=== PATIENT | female | born 1980 | race Caucasian/White ===

== ENCOUNTER 2016-10-27 09:27 | Day surgery (SDC) | payer MEDICAID ==
[2016-10-27] MEDS ORDERED: LR 1,000 ML IV SCH (10:30)
--- NOTE | 2016-10-27 11:30 | PDGENHP ---
History & Physical Chief Complaint: crohns History of Present Illness: crohns Relevant Physical Exam: NAD Cardiorespiratory Assessment: rrr. ctab
[2016-10-27] MEDS ORDERED: MIDAZOLAM 2 MG/2 ML VIAL IVP ONE (12:31)
--- NOTE | 2016-10-27 12:34 | PDANEPAE ---
ANE History of Present Illness Colonoscope ANE Past Medical History - Cardiovascular History Hx Hypertension: No Hx Arrhythmias: No Hx Chest Pain: No Hx Coronary Artery / Peripheral Vascular Disease: No Hx CHF / Valvular Disease: No Hx Palpitations: No - Pulmonary History Hx COPD: No Hx Asthma/Reactive Airway Disease: No Hx Recent Upper Respiratory Infection: No Hx Oxygen in Use at Home: No Hx Sleep Apnea: No - Endocrine History Hx Diabetes: No Hypothyroid: No Hyperthyroid: No ANE Patient History - Allergies Allergies/Adverse Reactions: ciprofloxacin [From Cipro] Allergy (Verified 10/27/16 10:01) ciprofloxacin HCl [From Cipro] Allergy (Verified 10/27/16 10:01) clindamycin Allergy (Verified 10/27/16 10:01) doxycycline Allergy (Verified 10/27/16 10:01) fluoxetine [From Prozac] Allergy (Verified 10/27/16 10:01) Swelling/neck,face,throat morphine Allergy (Verified 10/27/16 10:01) prochlorperazine [From Compazine] Allergy (Verified 10/27/16 10:01) prochlorperazine edisylate [From Compazine] Allergy (Verified 10/27/16 10:01) prochlorperazine maleate [From Compazine] Allergy (Verified 10/27/16 10:01) rifampin Allergy (Verified 10/27/16 10:01) Sulfa (Sulfonamide Antibiotics) Allergy (Verified 10/27/16 10:01) - Home Medications Home medications: home medication list seen and reviewed Home Medications: Cyanocobalamin [Vitamin B12 1000MCG/ML (*)] 1,000 mcg IJ .QMONTH 01/15/16 [Last Taken 09/29/16] Gabapentin [Neurontin 300 MG (*)] 600 mg PO BID 01/15/16 [Last Taken 10/27/16 09 :00] HYDROmorphone HCL [Dilaudid 4 mg (*)] 4 mg PO QID 01/15/16 [Last Taken 01/15/16 09:00] QUEtiapine FUMARATE [Seroquel 100 mg (*)] 400 mg PO HS 01/15/16 [Last Taken 12/04 21:00] Sertraline HCl [Zoloft 100mg (*)] 200 mg PO DAILY 01/15/16 [Last Taken 10/26/16 09:00] clonIDINE [Catapres (*)] 0.1 mg PO TID 01/15/16 [Last Taken 10/27/16 07:00] clonazePAM [klonoPIN (*)] 1 mg PO TID 01/15/16 [Last Taken 10/26/16 21:00] inFLIXimab [Remicade Inj 100 mg (*)] 0 mg IV .QMONTH 01/15/16 [Last Taken ] - NPO status NPO Since - Liquids (Date): 10/26/16 NPO Since - Liquids (Time): 22:00 NPO Since - Solids (Date): 10/26/16 NPO Since - Solids (Time): 09:00 - Anes Hx Anes Hx: post operative nausea - Smoking Hx Smoking Status: Never smoked Marijuana use: No - Alcohol Use Alcohol Use: Rarely - Family Anes Hx Family Anes Hx: none ANE Labs/Vital Signs - Vital Signs Blood Pressure: 107/69 Heart Rate: 94 Respiratory Rate: 16 O2 Sat (%): 95 Height: 185.42 cm Weight: 86.183 kg ANE Physical Exam - Airway Neck exam: FROM Mallampati Score: Class 1 Mouth exam: normal dental/mouth exam - Pulmonary Pulmonary: no respiratory distress - Cardiovascular Cardiovascular: regular rate and rhythym - ASA Status ASA Status: III ANE Anesthesia Plan Anesthesia Plan: GA with mask
[2016-10-27] MEDS ORDERED: PROPOFOL 200 MG/20 ML VIAL ONE ×3 (12:38→12:54)
[2016-10-27] MEDS ORDERED: NALOXONE HCL 0.4 MG/ML INJ IVP PRN (13:07)
[2016-10-27] MEDS ORDERED: ONDANSETRON 4 MG/2 ML VIAL IVP PRN (13:07)
[2016-10-27] MEDS ORDERED: fentaNYL 100 MCG/2 ML INJ ONE (13:26)
[2016-10-27] MEDS: fentaNYL 100 MCG/2 ML INJ IVP PRN ×2 (13:27→13:36)
[2016-10-27] MEDS ORDERED: ONDANSETRON 4 MG/2 ML VIAL ONE (13:31)
[2016-10-27 13:41] VITALS: TEMP 97.9
--- NOTE | 2016-10-27 14:34 | GPN ---
[f rep st] PROCEDURE NOTE DATE OF PROCEDURE: 10/27/2016 PROCEDURES: 1. Colonoscopy through stoma. 2. Sigmoidoscopy through anal orifice. 3. Biopsies throughout. INDICATION: Crohn disease with ongoing diarrhea, abdominal pain, and assessment for response to therapy after approximately 5 months of continuous Stelara. CONSENT: Informed consent was obtained from the patient after an explanation of risks, benefits, and alternatives to the procedure. MEDICATIONS GIVEN: Per Anesthesia. ESTIMATED BLOOD LOSS: Minimal. COMPLICATIONS: None. DESCRIPTION OF EXAM: After adequate sedation was achieved, the adult colonoscope was initially attempted to advance through the anal orifice but was unable to due to stricture formation. Therefore, it was removed, advanced into the descending colostomy, and advanced through the colon and into the distal ilium. Views throughout were good. Prep was good. Patient tolerance of the procedure was good. After the colonoscope was removed, we switched to an upper endoscope and used this to advance through the anal orifice and as far as the sigmoid colon. Prep in the sigmoid colon was poor with a large amount of formed stool. However, views of the mucosa were reasonable and noted as below. I was unable to reach the surgical top of the sigmoid colon where she is sewn shut. Then retroflexion was performed in the rectum. FINDINGS: 1. Ilium: The ilium appeared fairly normal with no ulcers or even any aphthae. Biopsies were performed throughout the ilium that was seen. About 15 cm of ileum were able to be visualized. 2. Ileocolonic anastomosis: This was seen in the ascending colon and had a healthy and wide open appearance. There was a small amount of erythema and erosions typical of many ileocolonic anastomoses. 3. Ascending and transverse colon: Normal appearing mucosa with no significant abnormalities. Biopsies were obtained for histology throughout the ascending and transverse colon. 4. Descending colon: Notable for long linear ulcerations in multiple quadrants. One of these extended all the way to the exterior portion of the ostomy. Biopsies were performed in the descending colon and of the ulcerated area to assess for Crohn disease versus ischemia. 5. Sigmoid colon as seen advancing from the anal orifice: Fair amount of solid stool was present although mucosa appeared fairly normal. Biopsies were taken. I am not sure how close I was to the top of her surgically closed sigmoid colon as the amount of solid stool prevented me from blindly advancing the scope. 6. Rectum: Notable for an 8 cm ulcerated stricture extending to the anal orifice. The anal canal was approximately 6 mm in diameter. I did obtain biopsies from the ulcerated tissue. I did not dilate. IMPRESSION: 1. Moderate ulcerations throughout the descending colon extending to the level of the descending colostomy, and otherwise, fairly normal colonoscopy other than some mild inflammation at the ileocolonic anastomosis. Biopsies obtained as noted above. 2. Significant anorectal stricturing 8 cm in distance with stool remaining in the sigmoid colon. 3. Overall, I think the descending colon ulcers and anal canal and rectal stricturing likely represent active Crohns disease. RECOMMENDATIONS: 1. Await pathology results. 2. Continue Stelara. 3. Difficult situation. Will tentatively plan to add azathioprine and Uceris with hope of driving descending colon disease into remission. I do think she will need left [id number], and if we can't get disease in the descending colon under control she may need a total proctocolectomy. I do not think currently available therapies for Crohns are likely to control disease adequately to allow any type of rectal/neorectum type approach. 4. Resume other medications. 5. Resume regular diet. /[id number]/MODL MTDD
[2016-10-27 15:45] VITALS: BP 102/58; PULSE 79; RESP 16; O2SAT 95
== END 2016-10-27 15:35 | disposition home or self-care (01) ==
LOC: FSGY 09:27
PROVIDERS: ATTEND Internal Medicine
PROC: 0DBP8ZX Excision of Rectum, Via Natural or Artificial Opening Endoscopic, Diagnostic (ICD-10-PCS; principal; 2016-10-27 11:00)
PROC: 0DBM8ZX Excision of Descending Colon, Via Natural or Artificial Opening Endoscopic, Diagnostic (ICD-10-PCS; principal; 2016-10-27 11:00)
PROC: 0DBL8ZX Excision of Transverse Colon, Via Natural or Artificial Opening Endoscopic, Diagnostic (ICD-10-PCS; principal; 2016-10-27 11:00)
PROC: 0DBK8ZX Excision of Ascending Colon, Via Natural or Artificial Opening Endoscopic, Diagnostic (ICD-10-PCS; principal; 2016-10-27 11:00)
PROC: 0DBN8ZX Excision of Sigmoid Colon, Via Natural or Artificial Opening Endoscopic, Diagnostic (ICD-10-PCS; principal; 2016-10-27 11:00)
DX: K50.10 Crohn's disease of large intestine without complications (principal)
CPT/HCPCS: J2250; J2405; J2704; J3010